=== PATIENT | female | born 1950 | race Hispanic/Latino ===

== ENCOUNTER → 2024-08-23 | Outpatient (REF) | payer MEDICARE ==
[~2024-08-23] MED LIST: AMLODIPINE BESYL5 MG PO; ATORVASTATIN CA10 MG PO; CARVEDILOL12.5 MG PO; DEXILANT60 MG PO; DIOVAN160 MG PO; DIOVAN80 MG PO; FUROSEMIDE40 MG PO; GLIMEPIRIDE4 MG; GLIMEPIRIDE4 MG PO; LASIX40 MG PO; METFORMIN HCL850 MG PO; PANTOPRAZOLE SO40 MG PO; POTASSIUM CHLO20 ME1; POTASSIUM CHLO20 ME1 PO
== END ==
LOC: RAD 14:41
PROVIDERS: ATTEND Specialist/Technologist, Other Surgical Technologist
DX: M79.675 Pain in left toe(s) (principal)